=== PATIENT | male | born 1975 | race African-American/Black ===

== ENCOUNTER 2016-12-01 09:12 | Emergency (ER) | payer MEDICAID ==
[~2016-12-01] VITALS: Ht 167.6 cm; Wt 79.0 kg
[2016-12-01] MEDS ORDERED: ACETAMINOPHEN 325MG TABLET PO ONE (10:45)
[2016-12-01] MEDS ORDERED: HYDROCODONE/ACETAMINOPHEN 5/325MG TABLET PO ONE (11:15)
[2016-12-01 12:24] VITALS: BP 141/88
[2016-12-01] MEDS ORDERED: ONDANSETRON 4MG ODT PO ONE (12:30)
== END 2016-12-01 12:41 | disposition home or self-care (01) ==
LOC: ER 09:24
DX: S72.492A Other fracture of lower end of left femur, initial encounter for closed fracture (principal); R26.81 Unsteadiness on feet; F12.10 Cannabis abuse, uncomplicated; W10.9XXA Fall (on) (from) unspecified stairs and steps, initial encounter; Y93.89 Activity, other specified; Y99.8 Other external cause status; Y92.89 Other specified places as the place of occurrence of the external cause
CPT/HCPCS: 29505; 73562; 99284; Q0162; Z7610